=== PATIENT | male | born 1940 | race Caucasian/White ===

== ENCOUNTER 2021-06-26 09:50 | Day surgery (SDC) | payer MEDICARE, OTHER, SELFPAY ==
[2021-06-22 12:09] VITALS: BMI 32.4
[2021-06-26 11:07] VITALS: BP 172/75; PULSE 97; RESP 18; TEMP 36.4; O2SAT 96
--- NOTE | 2021-06-26 11:08 | HO.ANESPROP2 ---
[facility] Past Medical History Medical History (Updated 06/22/21 @ 11:30 by Linda Ahumada, RN) Cancer Chronic renal insufficiency COPD (chronic obstructive pulmonary disease) DVT (deep venous thrombosis) Elevated cholesterol GERD (gastroesophageal reflux disease) HTN (hypertension) Hx of radiation therapy Functional capacity: independent ambulation Surgical History Surgical History H/O partial nephrectomy History of Problems with Anesthesia: No Social History Social History (Updated 06/22/21 @ 11:54 by Linda Ahumada, RN) Household Members: Spouse Are you a primary personal care aide to a significant other at home: No Do you presently have visiting nurse or other home services: No Alcohol intake: former Year quit: 1979 Patient Tobacco Use Status: Former Tobacco user Quit Date: 1974 Tobacco use type: Cigarette Smoked in Last 30 Days: No Use of substances other than those prescribed or required for medical reasons: No Have you been hit, kicked, punched, or otherwise hurt by someone within the past year? If so, by whom?: No Are you DNR?: No Advance Directives: No (pt states he has hcp) Advance Directives Information Provided: Yes Advance Directives on File: No Healthcare Proxy: Yes Current Diet: Other Recently lost weight without trying: No How much weight loss: Not applicable Eating poorly because of decreased appetite: No Nutrition screen score: 0 Nutrition Risks: No Nutritional Risk Poor oral hygiene: No Current occupational status: employed Current occupation: [employer] Allergies Allergy/AdvReac Type Severity Reaction Status Date / Time No Known Allergies Allergy Verified 06/22/21 12:02 Home Medications Medication Instructions Recorded Confirmed Last Taken Type Aspir-81 81 mg PO DAILY 06/22/21 06/22/21 06/15/21 History 81 mg doxazosin 8 mg PO DAILY 06/22/21 06/26/21 06/26/21 08:00 History irbesartan 300 mg PO DAILY 06/22/21 06/26/21 06/26/21 08:00 History simvastatin 40 mg PO DAILY 06/22/21 06/26/21 06/26/21 08:00 History Exam Exam Date and Time: June 26, 2021 1108 Height,Weight and Vital Signs: Height 5 ft 8 in Weight 96.8 kg Last Vital Signs Temp 97.5 F 06/26/21 11:07 Pulse 97 06/26/21 11:07 Resp 18 06/26/21 11:07 BP 172/75 H 06/26/21 11:07 Pulse Ox 96 06/26/21 11:07 Airway TM Dist: >3cm Neck ROM: Full Heart: RRR Lungs: CTA Assessment and Plan Final Anesthetic Review History of Problems with Anesthesia: No
--- NOTE | 2021-06-26 11:19 | MHC.SHP ---
Pre-Procedural Eval Section A Date of Service: 06/26/21 Section B Chief Complaint: Hx of colon Polyps, Screening Details of Present Illness: see h&p Relevant Family History (Specify if Yes): No Relevant Social History: None Present Medications: see Short Stay Collaborative assessment Medical History: No relevant PMH History of Previous Operations: No relevant previous surgery Allergies: Allergies Allergy/AdvReac Type Severity Reaction Status Date / Time No Known Allergies Allergy Verified 06/22/21 12:02 Review of Systems Sugical H&P ROS: Negative: Constitution, Cardiovascular, Respiratory, Neurological, Psychiatric, Hem-Onc, Allergic/Immunologic, Gastrointestinal, Genitourinary, Musculoskeletal, Integumentary, Endocrine and Eyes/Ears/Nose/Throat Exam Surgical H&P Exam: Normal: HEENT, Normal: Heart, Normal: Lungs, Normal: Extremities, Normal: Abdomen, Normal: Skin and Normal: Neurological Plan Diagnosis/Plan: Unchanged I have reviewed the history and physical and performed a pertinent physical examination on my patient. No changes have occurred unless specified.
[2021-06-26] MEDS: Lactated Ringers 1,000 ML 50 ML IVCONT (11:26)
[2021-06-26 11:56] VITALS: BP 109/56; PULSE 89; RESP 16; TEMP 36.7; O2SAT 94
--- NOTE | 2021-06-26 11:57 | PM.OP ---
Brief Operative Note Date of Service: 06/26/21 Pre-op diagnosis: screening Post-op diagnosis: same Procedure: colonoscopy Surgeon: Deangelo Treviño Anesthesia: MAC Was an Sales [employer] Service [employer] used for this Procedure?: No Estimated blood loss (mL): 0 Pathology: other (polypx1) Condition: stable Disposition: PACU
[2021-06-26 12:11] VITALS: BP 117/62; PULSE 92; RESP 18; TEMP 36.7; O2SAT 95
--- NOTE | 2021-06-26 12:22 | HO.POSTANES ---
Post Anesthesia Evaluation Post Anesthesia Evaluation Vital Signs: Vital Signs Temp Pulse Resp BP Pulse Ox 06/26/21 12:11 98.1 F 92 18 117/62 95 06/26/21 11:56 98.1 F 89 16 109/56 L 94 06/26/21 11:07 97.5 F 97 18 172/75 H 96 Anesthesia: Monitored Mental Status: Awake Pain Control: Satisfactory Nausea/Vomiting: None Hydration: Adequate Anesthesia-Related Issues: No Anes. Related Issues
--- NOTE | 2021-06-26 12:31 | OP_ITS ---
SURGEON: Deangelo Treviño MD INDICATIONS: Colon cancer screening and prior history of adenomatous colon polyps. PREOPERATIVE DIAGNOSIS: POSTOPERATIVE DIAGNOSIS: PROCEDURE PERFORMED: Colonoscopy to the terminal ileum with snare polypectomy. ESTIMATED BLOOD LOSS: COMPLICATIONS: ANESTHESIA: Monitored anesthesia care. ASSISTANTS: SPECIMENS: DESCRIPTION OF PROCEDURE: History and physical performed. The risks and benefits of the procedure were explained to the patient, and informed consent was obtained. The patient was placed in left lateral decubitus position. A digital rectal exam was performed and it was found to be normal. The Olympus pediatric video colonoscope was introduced into the rectum and advanced to the cecum without difficulty. The cecum was identified by transillumination, palpation, and identification of ileocecal valve. Examination was performed. The scope was removed. He tolerated the procedure well and was taken to the recovery are in stable condition. FINDINGS: The terminal ileum was examined and it appeared normal. The visualized colonic mucosa was normal. The quality of the prep was good. At 40 cm from the anal verge, there was a less than 10 mm polyp, which was removed with a snare and recovered via suction. No other polyps were identified. Retroflexed examination showed small internal hemorrhoids. There was moderate diverticulosis of the sigmoid. IMPRESSION: Colon polyp. RECOMMENDATIONS: Follow up the biopsy results. MD ADITHYA Quiroga/JORDY / [id number] MTDD
== END 2021-06-26 12:47 | disposition home or self-care (01) ==
PROVIDERS: PCP Internal Medicine; Visit Provider Internal Medicine Gastroenterology
PROC: 0DJD8ZZ Inspection of Lower Intestinal Tract, Via Natural or Artificial Opening Endoscopic (ICD-10-PCS; CPT 45378; principal; 2021-06-26 11:20)
DX: Z12.11 Encounter for screening for malignant neoplasm of colon (principal); Z86.010 Personal history of colon polyps; D12.5 Benign neoplasm of sigmoid colon; K57.30 Diverticulosis of large intestine without perforation or abscess without bleeding; K64.8 Other hemorrhoids; J44.9 Chronic obstructive pulmonary disease, unspecified; I12.9 Hypertensive chronic kidney disease with stage 1 through stage 4 chronic kidney disease, or unspecified chronic kidney disease; N18.9 Chronic kidney disease, unspecified; K21.9 Gastro-esophageal reflux disease without esophagitis; Z87.891 Personal history of nicotine dependence; Z85.46 Personal history of malignant neoplasm of prostate; Z85.528 Personal history of other malignant neoplasm of kidney; Z90.5 Acquired absence of kidney; Z92.3 Personal history of irradiation; Z79.82 Long term (current) use of aspirin; Z79.899 Other long term (current) drug therapy
CPT/HCPCS: 45385; 88305